=== PATIENT | female | born 1965 | race Caucasian/White ===

== ENCOUNTER 2017-04-24 04:03 | Emergency (ER) | payer MEDICARE ==
[2017-04-24 05:32] LABS: URINE BILIRUBIN NEGATIVE (NEG); URINE BLOOD MODERATE (NEG); URINE GLUCOSE (UA) NEGATIVE (NEG); URINE KETONE SMALL (NEG); URINE LEUKOCYTE ESTERASE POSITIVE (NEG); URINE NITRITE POSITIVE (NEG); URINE PROTEIN MODERATE (NEG)
[2017-04-24 05:35] LABS: URINE APPEARANCE CLEAR; URINE COLOR YELLOW
[2017-04-24 05:40] LABS: URINE RBC 0-1 /[HPF] (0-5)
[2017-04-24] MEDS ORDERED: KEFLEX500 M4 PO (06:10)
== END 2017-04-24 06:18 ==
LOC: EDMED 04:03
PROVIDERS: Physician Assistant
DX: N39.0 Urinary tract infection, site not specified (principal); F31.9 Bipolar disorder, unspecified; F20.9 Schizophrenia, unspecified; Z87.891 Personal history of nicotine dependence; Z79.899 Other long term (current) drug therapy